=== PATIENT | male | born 1995 | race Caucasian/White ===

== ENCOUNTER 2023-09-01 14:54 | Emergency (ER) | payer OTHER, SELFPAY ==
[2023-09-01 14:54] VITALS: BP 142/105; PULSE 97; RESP 18; TEMP 35.3; O2SAT 97; BMI 37.8
--- NOTE | 2023-09-01 15:22 | RAD_ITS ---
EXAM: XR RIGHT RIBS AND AP CHEST, 3 OR MORE VIEWS CLINICAL INDICATION: Trauma TECHNIQUE: Frontal and oblique views of the right ribs and frontal view of the chest. COMPARISON: No relevant prior studies available. FINDINGS: LUNGS AND PLEURAL SPACES: Unremarkable. No consolidation or edema. No pneumothorax. No effusion. HEART: Unremarkable. Cardiac silhouette not enlarged. MEDIASTINUM: Central airways and mediastinal contour are unremarkable. BONES/JOINTS: Unremarkable. No evidence of displaced rib fractures. RAD/Ribs Uni Min 3V w/PA Chest IMPRESSION: Negative chest and right ribs series. Electronically Signed: Florencio Lockhart MD at 16:10 EST Reading Location ID and State: [facility] / [place] , Service support ,
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
[2023-09-01] MEDS: HYDROcodone Bitartrate/Apap 5/325 Tablet PO (15:32)
== END 2023-09-01 16:29 | disposition home or self-care (01) ==
PROVIDERS: Emergency Provider Emergency Medicine; Visit Provider Emergency Medicine
DX: S20.20XA Contusion of thorax, unspecified, initial encounter (principal); X58.XXXA Exposure to other specified factors, initial encounter; Y93.89 Activity, other specified; Y92.828 Other wilderness area as the place of occurrence of the external cause
CPT/HCPCS: 71101; 99282

== ENCOUNTER 2024-12-27 13:29 | Emergency (ER) | payer OTHER, SELFPAY ==
[2024-12-27 13:30] VITALS: BP 143/99; PULSE 101; RESP 22; TEMP 36.6; O2SAT 98; BMI 41.0
--- NOTE | 2024-12-27 13:57 | EKG12_ITS ---
Test Reason : CP Blood Pressure : */* mmHG Vent. Rate : 87 BPM Atrial Rate : 87 BPM P-R Int : 144 ms QRS Dur : 82 ms QT Int : 370 ms P-R-T Axes : 29 58 54 degrees QTcB Int : 445 ms Normal sinus rhythm Normal ECG Confirmed by LOVE STANLEY, CHINYERE ([id number]), television news video editor SONALI GREENE ([id number]) on 12/28/2024 9:26:19 AM Referred By: Confirmed By: CHINYERE ALEMAN MD
[2024-12-27 14:06] LABS: Absolute Lymphocyte Count 2.83 X10^3/uL (0.83-4.51); Absolute Neutrophil Count 5.3 X10^3/uL (2.0-7.7); Basophil# 0.12 X10^3/uL; Basophil% 1.3 % (0-1); Eosinophil# 0.23 X10^3/uL; Eosinophils% 2.5 % (0-5); Hemoglobin 16.3 g/dL (13.0-16.5); Lymphocyte # 2.83 X10^3/ul (0.83-4.51); Lymphocyte % 30.4 % (19-41); Mean Corp Hgb Conc 35.4 g/dL (32-36); Mean Corpuscular Hgb 32.5 pg (27.0-32.0); Mean Corpuscular Volume 91.6 fL (80-94); Monocyte# 0.67 X10^3/uL; Monocyte% 7.2 % (0-10); NRBC Flagged by Analyzer 0 % (0-5); Neutrophil # 5.33 X10^3/uL (2.7-7.7); Neutrophil % 57.1 % (47-70); Platelet Count 291 K/mm3 (150-450); RBC Distribution Width SD 39.9 fl (35.1-43.9); Red Blood Count 5.02 M/mm3 (4.6-6.2); White Blood Count 9.3 K/mm3 (4.4-11.0)
--- NOTE | 2024-12-27 14:15 | RAD_ITS ---
EXAM: XR Chest, 2 Views CLINICAL INDICATION: CHEST PAIN TECHNIQUE: Frontal and lateral views of the chest. COMPARISON: No relevant prior studies available. FINDINGS: LUNGS AND PLEURAL SPACES: Unremarkable. No consolidation. No pneumothorax. HEART: Unremarkable. No cardiomegaly. MEDIASTINUM: Unremarkable. Normal mediastinal contour. BONES/JOINTS: Unremarkable. No acute fracture. RAD/Chest PA and Lateral IMPRESSION: No acute cardiopulmonary process. Reading Location: [id number]
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
[2024-12-27 14:27] LABS: Anion Gap 12 (5-15); BUN 8 mg/dL (4-19); BUN/Creat Ratio 8.5 RATIO (10-20); Calcium,Total 9.5 mg/dL (7.6-11.0); Carbon Dioxide 24.5 mmol/L (21.0-32.0); Chloride 103 mmol/L (98-108); Creatinine, Serum 0.95 mg/dL (0.70-1.20); EST Glomerular Filtration Rate 111 (>60); Estimated Creatinine Clearance 186.84 ml/min (50-250); Glucose 90 mg/dL (70-99); Potassium 3.6 mmol/L (3.3-5.1); Sodium Level 139 mmol/L (133-145); Troponin T High Sensitivity 7 ng/L (<=22)
[2024-12-27 14:29] VITALS: BP 123/96; PULSE 80; RESP 18; O2SAT 99
[2024-12-27 15:00] VITALS: BP 132/77; PULSE 80; RESP 18; O2SAT 99
--- NOTE | 2024-12-27 15:30 | CM.ED ---
Social Work Date of referral: 12/27/2024 Reason for referral: No established PCP Referred by: Social Work Identification Patient provided consent to social work visit. Patient confirmed he is not established with a PCP. Chemistry Account Manager provided patient with a resource for PCP through [facility] which patient accepted. Chantal Baltazar, BARIATRIC SURGEON, WIRE STEWARD
[2024-12-27 16:00] VITALS: BP 129/90; PULSE 76; RESP 18; O2SAT 98
[2024-12-27 16:22] LABS: Troponin T High Sens 2 HR 8 ng/L (<=22)
[2024-12-27 16:40] VITALS: BP 129/90; PULSE 76; RESP 18; TEMP 36.6; O2SAT 98
== END 2024-12-27 16:41 | disposition home or self-care (01) ==
PROVIDERS: Emergency Provider Emergency Medicine; Visit Provider Emergency Medicine
DX: R07.9 Chest pain, unspecified (principal)
CPT/HCPCS: 71046; 80048; 84484; 85025; 87631; 93005; 99283; A4216

== ENCOUNTER → 2025-06-02 | Outpatient (CLI) | payer OTHER, SELFPAY ==
[2025-06-02 15:45] LABS: Mucous, Urine 0 SEEN /hpf (<or=2+); Squamous Epithelial Cells - UA 0 SEEN /hpf (0-5)
[2025-06-02 17:22] LABS: Uric Acid 7.1 mg/dL (3.5-7.2)
[2025-06-02 21:30] LABS: Red Blood Cells-Urine 0-5 SEEN /hpf (0-5)
[2025-06-02 21:31] LABS: Calcium Oxalate Crystals Ur RARE /hpf (<or=2+)
== END | disposition home or self-care (01) ==
LOC: VSLAB 15:42
PROVIDERS: PCP Nurse Practitioner Family; Visit Provider Nurse Practitioner Family
DX: R31.29 Other microscopic hematuria (principal); R74.8 Abnormal levels of other serum enzymes
CPT/HCPCS: 36415; 84550